=== PATIENT | male | born 1975 | race Two or more races ===

== ENCOUNTER 2023-06-29 07:34 | Emergency (ER) | payer MEDICAID ==
[~2023-06-29] VITALS: Ht 167.6 cm; Wt 91.7 kg
[2023-06-29] MEDS ORDERED: ASPirin 325 MG TAB PO ONE (08:00)
[2023-06-29 08:34] LABS: Basophils # (auto) 0.1 10 ^3/uL (0-0.2); Eosinophils # (auto) 0.3 10 ^3/uL (0-0.8); Eosinophils % (auto) 3.7 % (0.0-7.0); Hematocrit 43.3 % (41.0-53.0); Hemoglobin 14.8 g/dL (13.5-17.5); Lymphocytes # (auto) 2.6 10 ^3/uL (0.4-5.4); Lymphocytes % (auto) 34.9 % (10.0-50.0); Mean Corpuscular Hemoglobin 30.4 pg (28.0-32.0); Mean Corpuscular Hgb Conc. 34.1 g/dL (32.0-36.0); Mean Corpuscular Volume 89.1 fL (80.0-100.0); Monocytes # (auto) 0.6 10 ^3/uL (0-1.3); Monocytes % (auto) 8.1 % (0.0-12.0); Neutrophils # (auto) 3.9 10 ^3/uL (1.6-8.6); Neutrophils % (auto) 52.3 % (37.0-80.0); Red Blood Cells 4.86 10^6/uL (4.5-5.90); White Blood Cell 7.5 10^3/uL (4.4-10.8)
[2023-06-29 08:49] LABS: Alanine Aminotransferase 68 U/L (7-40); Albumin 4.4 g/dL (3.2-4.8); Alkaline Phosphatase 134 U/L (46-116); Anion Gap 10.7 (5-15); Aspartate Aminotransferase 49 U/L (13-40); BUN/Creatinine Ratio 14.3 (10.0-20.0); Bilirubin, Total 0.5 mg/dL (0.2-1.0); Blood Urea Nitrogen 11 mg/dL (9-23); Calcium 9.4 mg/dL (8.5-10.1); Carbon Dioxide 20.3 mmol/L (20-30); Chloride 106 mmol/L (98-107); Glucose 278 mg/dL (74-106); Sodium 137 mmol/L (136-145); Total Protein 8.2 g/dL (5.7-8.2)
[2023-06-29] MEDS ORDERED: LEVO500T91 PO (09:43)
[2023-06-29] MEDS ORDERED: cefTRIAXone SOD 1,000 MG VL IM ONE (09:45)
[2023-06-29 10:38] VITALS: BP 129/84; PULSE 72; RESP 18; TEMP 97.7; O2SAT 95
== END 2023-06-29 10:40 | disposition home or self-care (01) ==
LOC: ER 07:34
DX: J18.9 Pneumonia, unspecified organism (principal); R73.9 Hyperglycemia, unspecified
CPT/HCPCS: 36415; 71046; 80053; 84484; 85025; 85379; 93005; 96372; 99285; J0696

== ENCOUNTER 2024-05-15 07:48 | Emergency (ER) | payer MEDICAID ==
[~2024-05-15] VITALS: Ht 167.6 cm; Wt 81.8 kg
[~2024-05-15 07:48] MED LIST: LEVO500T91 PO
[2024-05-15 08:20] VITALS: TEMP 98
[2024-05-15 08:22] LABS: Basophils # (auto) 0.1 10 ^3/uL (0-0.2); Eosinophils # (auto) 0.4 10 ^3/uL (0-0.8); Eosinophils % (auto) 4.7 % (0.0-7.0); Hematocrit 42.2 % (41.0-53.0); Hemoglobin 15.1 g/dL (13.5-17.5); Lymphocytes # (auto) 2.3 10 ^3/uL (0.4-5.4); Lymphocytes % (auto) 29.1 % (10.0-50.0); Mean Corpuscular Hemoglobin 31.4 pg (28.0-32.0); Mean Corpuscular Hgb Conc. 35.9 g/dL (32.0-36.0); Mean Corpuscular Volume 87.4 fL (80.0-100.0); Monocytes # (auto) 0.6 10 ^3/uL (0-1.3); Monocytes % (auto) 8.2 % (0.0-12.0); Neutrophils # (auto) 4.4 10 ^3/uL (1.6-8.6); Red Blood Cells 4.82 10^6/uL (4.5-5.90); Red Cell Distribution Width 12.9 % (11.8-14.3); White Blood Cell 7.7 10^3/uL (4.4-10.8)
[2024-05-15 08:36] LABS: INR 1.08 (0.9-1.15); Partial Thromboplastin Time 26.5 SEC (24.5-34.5); Prothrombin Time 11.4 sec (9.3-11.8)
[2024-05-15 08:47] LABS: Alanine Aminotransferase 74 U/L (7-40); Albumin 4.4 g/dL (3.2-4.8); Alkaline Phosphatase 146 U/L (46-116); Anion Gap 8 (5-15); Aspartate Aminotransferase 65 U/L (13-40); BUN/Creatinine Ratio 15.3 (10.0-20.0); Blood Urea Nitrogen 11 mg/dL (9-23); Calcium 9.9 mg/dL (8.7-10.4); Carbon Dioxide 24 mmol/L (20-30); Chloride 103 mmol/L (98-107); Glucose 286 mg/dL (74-106); Potassium 4.3 mmol/L (3.5-5.1); Sodium 135 mmol/L (136-145)
[2024-05-15 08:48] LABS: Bilirubin, Total 0.7 mg/dL (0.2-1.0); Total Protein 7.9 g/dL (5.7-8.2)
[2024-05-15] MEDS: MAALOX PLUS or MAALOX 30 ML PO ONE (08:59)
[2024-05-15] MEDS: ASPirin 325 MG TAB PO ONE (08:59)
[2024-05-15] MEDS: DONNATAL 5ml ORAL Elix (BELLADONNA ALK-PHENOBARB) PO ONE (08:59)
[2024-05-15 09:00] VITALS: PULSE 82; RESP 12; O2SAT 96
[2024-05-15] MEDS: LIDOCAINE VISCOUS 2% 15ML UD PO ONE (09:00)
[2024-05-15 09:27] LABS: Urine Bacteria FEW /hpf (None Seen); Urine Blood TRACE /uL (Negative); Urine Clarity Clear (Clear); Urine Color Light-Yellow (Yellow); Urine Protein, UAD TRACE (Negative); Urine Specific Gravity 1.031 (1.001-1.035); Urine Urobilinogen Normal (Negative); Urine WBC 1 /hpf (0 - 3)
[2024-05-15 10:20] VITALS: BP 118/77; PULSE 76; RESP 12; O2SAT 96
[2024-05-15 13:40] LABS: Amphetamine Screen, Urine Neg (NEGATIVE); Barbiturate Scree,Urine Neg (NEGATIVE)
[2024-05-15 13:41] LABS: Benzodiazephine Screen, Urine Neg (NEGATIVE); Cannabinoid Screen, Urine Neg (NEGATIVE); Cocaine Screen, Urine Neg (NEGATIVE); Opiate Scree,Urine Neg (NEGATIVE); Phencyclidine Screen, Urine Neg (NEGATIVE)
[2024-05-16] MEDS ORDERED: ASPirin 81 mg TAB PO SCH (10:00)
== END 2024-05-15 14:22 | disposition left against medical advice (07) ==
LOC: ER 07:48
DX: R07.9 Chest pain, unspecified (principal); Z79.899 Other long term (current) drug therapy
CPT/HCPCS: 36415; 71045; 80053; 80307; 80320; 81001; 84484; 85025; 85610; 85730; 93005

== ENCOUNTER 2024-06-26 08:55 | Emergency (ER) | payer MEDICAID ==
[~2024-06-26] VITALS: Ht 167.6 cm; Wt 81.6 kg
[2024-06-26 09:03] VITALS: BP 135/89; PULSE 87; RESP 16; O2SAT 97
[2024-06-26 09:24] LABS: Basophils # (auto) 0.1 10 ^3/uL (0-0.2); Basophils % (auto) 0.9 % (0.0-2.0); Eosinophils # (auto) 0.3 10 ^3/uL (0-0.8); Eosinophils % (auto) 3.5 % (0.0-7.0); Hematocrit 45.1 % (41.0-53.0); Hemoglobin 15.8 g/dL (13.5-17.5); Lymphocytes # (auto) 2.9 10 ^3/uL (0.4-5.4); Lymphocytes % (auto) 34.5 % (10.0-50.0); Mean Corpuscular Hemoglobin 31.4 pg (28.0-32.0); Mean Corpuscular Hgb Conc. 35.1 g/dL (32.0-36.0); Mean Corpuscular Volume 89.4 fL (80.0-100.0); Monocytes # (auto) 0.7 10 ^3/uL (0-1.3); Monocytes % (auto) 8.1 % (0.0-12.0); Neutrophils # (auto) 4.4 10 ^3/uL (1.6-8.6); Platelet Count (auto) 238 10^3/uL (140-450); Red Blood Cells 5.04 10^6/uL (4.5-5.90); White Blood Cell 8.3 10^3/uL (4.4-10.8)
[2024-06-26 09:48] LABS: Alanine Aminotransferase 71 U/L (7-40); Alkaline Phosphatase 141 U/L (46-116); Anion Gap 8 (5-15); Blood Urea Nitrogen 10 mg/dL (9-23); Carbon Dioxide 22 mmol/L (20-30); Chloride 105 mmol/L (98-107); Glucose 305 mg/dL (74-106); Potassium 4.2 mmol/L (3.5-5.1); Sodium 135 mmol/L (136-145)
[2024-06-26 09:49] LABS: Albumin 4.5 g/dL (3.2-4.8); Aspartate Aminotransferase 62 U/L (13-40); Total Protein 8.4 g/dL (5.7-8.2)
[2024-06-26 12:24] LABS: Urine Bacteria FEW /hpf (None Seen); Urine Blood TRACE /uL (Negative); Urine Clarity Clear (Clear); Urine Color Yellow (Yellow); Urine Protein, UAD 1+ (Negative); Urine Specific Gravity 1.043 (1.001-1.035); Urine Urobilinogen Normal (Negative); Urine WBC 2 /hpf (0 - 3)
== END 2024-06-26 13:08 | disposition home or self-care (01) ==
LOC: ER 08:55
DX: F41.9 Anxiety disorder, unspecified (principal); R74.8 Abnormal levels of other serum enzymes; R73.9 Hyperglycemia, unspecified; Z79.899 Other long term (current) drug therapy
CPT/HCPCS: 36415; 71045; 80053; 81001; 84484; 85025; 93005

== ENCOUNTER 2025-01-20 18:29 | Emergency (ER) | payer SELFPAY ==
[~2025-01-20] VITALS: Ht 167.6 cm; Wt 93.6 kg
[2025-01-20] MEDS ORDERED: TACR0.1O7 EX (19:28)
--- NOTE | 2025-01-20 19:29 | ED.PDOC ---
History of Present Illness(SKN HPI Comments 49-YEAR-OLD MALE PRESENTS TO THE ED CHIEF COMPLAINT REFILL OF HIS PRESCRIBED MEDICATION. HE TAKES TACROLIMUS OINTMENT 0.1% TWICE DAILY TO BOTH HANDS REPORTED HISTORY OF VITILIGO. PATIENT HAS EMPTY PRESCRIPTION BOX WITH HIM. DENIES ANY OTHER CONCERNS. Chief Complaint: Rash Time Seen by MD: 18:36 Primary Care Provider: none History of Present Illness: Nurses Notes, Medications, Allergies Allergies: Coded Allergies: NO KNOWN ALLERGIES (Unverified , 06/29/23) Home Meds Active Scripts Levofloxacin Hemihydrate (LEVOFLOXACIN) 500 Mg Tab, 500 MG PO DAILY for 10 Days, #10 MG Prov:ELISABETH ASHTON MD 06/29/23 Information Source: Patient Mode of Arrival: Ambulatory Past Medical History Past Medical History (Other): VITILIGO Surgical History: Denies all surgeries Family History Family History: Reviewed,noncontributory to illness, Unknown Social History Smoker: Non-Smoker Alcohol: Denies ETOH Use Drugs: Denies Drug Use Lives In: Home Constitutional: denies: chills, diaphoresis, fatigue, fever, malaise, sweats, weakness, others EENTM: denies: blurred vision, double vision, ear bleeding, ear discharge, ear drainage, ear pain, ear ringing, eye pain, eye redness, hearing loss, mouth pain, mouth swelling, nasal discharge, nose bleeding, nose congestion, nose pain, photophobia, tearing, throat pain, throat swelling, voice changes, others Respiratory: denies: cough, hemoptysis, orthopnea, SOB at rest, shortness of breath, SOB with excertion, stridor, wheezing, others Cardiovascular: denies: chest pain, dizzy spells, diaphoresis, Dyspnea on exertion, edema, irregular heart beat, left arm pain, lightheadedness, palpitations, PND, syncope, others Gastrointestinal: denies: abdomen distended, abdominal pain, blood streaked bowels, constipated, diarrhea, dysphagia, difficulty swallowing, hematemesis, melena, nausea, poor appetite, poor fluid intake, rectal bleeding, rectal pain, vomiting, others Genitourinary: denies: burning, dysuria, flank pain, frequency, hematuria, incontinence, penile discharge, penile sore, pain, testicle pain, testicle swelling, urgency, others Neurological: denies: dizziness, fainting, headache, left sided numbness, left sided weakness, numbness, paresthesia, pre-existing deficit, right sided numbness, right sided weakness, seizure, speech problems, tingling, tremors, weakness, others Musculoskeletal: denies: back pain, gout, joint pain, joint swelling, muscle pain, muscle stiffness, neck pain, others Integumetry: reports: rash (PALE RASH TO BILATERAL HANDS AND FINGERS); denies: bruises, change in color, change in hair/nails, dryness, laceration, lesions, lumps, wounds, others Allergic/Immunocompromised: denies: Difficulty Healing, Frequent Infections, Hives, Itching, others Hematologic/Lymphatic: denies: anemia, blood clots, easy bleeding, easy bruising, swollen glands, others Endocrine: denies: excessive hunger, excessive sweating, excessive thirst, excessive urination, flushing, intolerance to cold, intolerance to heat, unexplained weight gain, unexplained weight loss, others Psychiatric: denies: anxiety, bipolar disorder, depression, hopeless, panic disorder, schizophrenia, sleepless, suicidal, others Physical Exam General Appearance: No Apparent Distress, Normal HEENT: Pharynx Normal Neck: Full Range of Motion, Non-Tender, Normal Respiratory: Lungs Clear, No Respiratory Distress, Normal Breath Sounds Cardiovascular: No Edema, No Murmur, Normal Peripheral Pulses, Regular Rate/Rhythm Breast Exam: Deferred Gastrointestinal: Non Tender, Soft Genitalia: Deferred Pelvic: Deferred Rectal: Deferred Extremities: Normal capillary refill, Normal range of motion Musculoskeletal : Apperance: Normal Neurologic: Alert, crtt II-XII nml as Tested, No Motor Deficits, Normal Affect, Normal Mood, No Sensory Deficits Cerebellar Function: Normal Reflexes: Normal Skin: Dry, Normal Color, Rash (LIKE RASH TO BILATERAL HANDS AND FINGERS NO NOTED EXCORIATIONS OR ERYTHEMA OR OPEN LESIONS), Warm Lymphatic: No Adenopathy Was a procedure done? Was a procedure done?: No Differential Diagnosis (INTG) Differential Diagnosis: Candidiasis, Cellulitis, Contact Dermatitis, Psoriasis, Rosacea, Urticaria X-Ray, Labs, Meds, VS Vital Signs Date Time Temp Pulse Resp B/P (MAP) Pulse Ox O2 Delivery O2 Flow Rate FiO2 01/20/25 18:55 98.5 97 20 125/78 (94) 97 98.5 X-Ray, Labs, Meds, VS Comment MEDICATION REFILLS BASED ON PATIENT'S PRESCRIPTION. ADVISED TO FOLLOW UP WITH HIS PCP FOR FURTHER REFILLS. ADVISED TAKE MEDICATIONS PRESCRIBED SIDE EFFECTS DISCUSSED. ADVISED ON ER RETURN PRECAUTIONS PATIENT INDICATES UNDERSTANDING AND AGREES WITH DISCHARGE PLAN OF CARE Time of 1ST Reevaluation: 19:24 Reevaluation 1ST: Improved Patient Education/Counseling: Diagnosis, Treatment, Prognosis, Need For Follow Up Family Education/Counseling: No Family Present Departure 1 Departure Time of Disposition: 19:25 Impression: Primary Impression: Vitiligo Disposition: 01 HOME / SELF CARE / HOMELESS Condition: Stable e-Prescriptions Tacrolimus (Tacrolimus) 0.1 % Oin 0.1 % EX BID for 30 Days, #30 GRAMS Prov: STEPHY NAYLOR 01/20/25 Discharged With: Self Critical Care Note Critical Care Time?: No Stability Stability form required: STEPHY Bradley Jan 20, 2025 19:29
[2025-01-20 19:33] VITALS: BP 125/78; PULSE 97; RESP 20; TEMP 98.5; O2SAT 97
== END 2025-01-20 19:39 | disposition home or self-care (01) ==
LOC: ER 18:29
DX: L80 Vitiligo (principal); Z79.899 Other long term (current) drug therapy